=== PATIENT | male | born 1990 | race Caucasian/White ===

== ENCOUNTER 2023-11-05 06:31 | Day surgery (SDC) | payer BC, SELFPAY ==
[2023-11-05] VITALS (8 sets, daily range): BP systolic 109–136; BP diastolic 66–81; BMI 27.9
[2023-11-05] MEDS: CELEBREX 200 MG PO (08:25)
[2023-11-05] MEDS: TYLENOL 1000 MG PO (08:26)
[2023-11-05] MEDS: NORMOSOL-R 1000 IV (08:40)
--- NOTE | 2023-11-05 08:48 | PTCARENOTE ---
Patient sent for a block today to Dr. Gomez. Patients sling sent with him to the OR.
== END 2023-11-05 13:00 | disposition home or self-care (01) ==
LOC: SDS 06:31
PROVIDERS: ATTENDING PHYSICIAN Orthopaedic Surgery
DX: S43.432A Superior glenoid labrum lesion of left shoulder, initial encounter (principal); X58.XXXA Exposure to other specified factors, initial encounter
CPT/HCPCS: 29807